=== PATIENT | female | born 1990 | race Caucasian/White ===

== ENCOUNTER 2016-12-12 20:19 | Emergency (ER) | payer OTHER ==
[~2016-12-12] VITALS: Ht 149.9 cm; Wt 51.3 kg
[2016-12-12] MEDS ORDERED: NAPROXEN500 MG PO (22:20)
[2016-12-12] MEDS ORDERED: SKELAXIN800 MG PO (22:20)
[2016-12-12] MEDS ORDERED: HYCODAN SYRUP480 ML PO (22:41)
[2016-12-12 22:49] VITALS: BP 119/69
== END 2016-12-12 22:50 | disposition home or self-care (01) ==
LOC: EME 20:19
DX: M62.838 Other muscle spasm (principal); J06.9 Acute upper respiratory infection, unspecified
CPT/HCPCS: 99281; 99284; J8540